=== PATIENT | male | born 1990 | race Caucasian/White ===

== ENCOUNTER 2020-04-21 14:52 | Outpatient (REF) | payer OTHER, SELFPAY | END 2020-04-21 14:53 | disposition home or self-care (01) | LOC: HO.LAB 14:52 | PROVIDERS: Visit Provider Internal Medicine | DX: Z20.828 Contact with and (suspected) exposure to other viral communicable diseases (principal) | CPT/HCPCS: C9803; U0003 ==

== ENCOUNTER 2022-02-27 10:37 | Emergency (ER) | payer OTHER, SELFPAY ==
[2022-02-27 12:10] VITALS: BP 131/75; PULSE 64; RESP 16; TEMP 36.6; O2SAT 99; BMI 28.1
--- NOTE | 2022-02-27 14:41 | ED.EAR ---
HPI - Ear Problem General Chief complaint: Ear Problems Stated complaint: pain in R ear. both ears bleeding 3 days Time Seen by Provider: 02/27/22 14:16 Source: patient Mode of arrival: ambulatory History of Present Illness HPI Narrative: 31-year-old male with no significant past medical history presenting to the ED complaining of right ear pain x4 days. Reports pain radiating to face and mouth. Admits to bloody drainage a few days ago which has resolved. Denies fever, chills, hearing loss, cough, recent travel, sore throat/inability to swallow MD Complaint: ear pain and ear discharge Location: right ear Related Data Previous Rx's Medication Instructions Recorded amoxicillin 875 mg-potassium 1 tab PO BID 7 days #14 tabs 02/27/22 clavulanate 125 mg tablet ciprofloxacin 0.3 %-dexamethasone 4 drp otic (ears) BID 7 days #7.5 02/27/22 0.1 % ear drops,suspension mL (Ciprodex) Allergies Allergy/AdvReac Type Severity Reaction Status Date / Time No Known Allergies Allergy Verified 02/27/22 12:09 Review of Systems Review of Systems: Constitutional: No Fever, No Chills ENT/Mouth: + Ear Pain, No Nasal Congestion, No Sinus Pain, No Hoarseness, No sore throat, No Rhinorrhea, No Swallowing Difficulty Cardiovascular: No Chest Pain, No SOB Respiratory: No Cough, No Sputum Gastrointestinal: No Nausea, No Vomiting, No Diarrhea, No Constipation, No Abdominal pain Genitourinary: No Dysuria, No Urinary Frequency, No Hematuria, No Flank Pain Musculoskeletal: No joint pain, No Myalgias, No Joint Swelling Skin: No Skin Lesions, No rash Neuro: No Weakness, No Numbness, No Paresthesias Yes all other systems are reviewed and are negative Constitutional: Constitutional: Reports as per [facility] Past Medical History Attestation statement: The following information was validated with the patient. Social History Social History Advance Directives: No Advance Directives Information Provided: No Physical Exam Vital Signs: Vital Signs: Last Vital Signs Temp 98 F 02/27/22 12:10 Pulse 64 02/27/22 12:10 Resp 16 02/27/22 12:10 BP 131/75 02/27/22 12:10 Pulse Ox 99 02/27/22 12:10 O2 Del Method 02/27/22 12:10 BMI result Body Mass Index 28.1 Const: General: cooperative, healthy appearing and no acute distress Orientation/consciousness: patient oriented x3 Limitations: no limitations HEENT: Head: Yes normal to inspection and Yes atraumatic Ears: hearing grossly normal bilaterally, TM normal on the left, mastoids normal, Abnormal EAC present edema on the right and EAC tenderness on the right and TM abnormal dull on the right and erythematous on the right General nose exam: Normal external nose present Face and sinus: Yes normal facial exam Throat: Yes posterior oropharynx normal, Yes tonsils normal, Yes uvula midline, No abnormal tonsil and No peritonsillar mass Eyes: General: appearance normal, both eyes and all related structures EOM: EOMs intact bilaterally Neck: Neck: Yes normal visual inspection and Yes no meningeal signs Resp: Effort & Inspection: normal respiratory effort and no respiratory distress Auscultation: clear to auscultation bilaterally Cardio: Rate: regular rate Heart sounds: S1 normal heart sound present and S2 normal heart sound present Skin: Rashes: no rashes Wounds: no wounds Neuro: General: patient oriented x3, tone normal and no meningeal signs Gait exam (Neuro): Normal gait present Extrem: General: Yes normal to inspection MDM - Ear MDM Narrative Medical decision making narrative: 31-year-old male with no significant past medical history presenting to the ED complaining of right ear pain x4 days. On exam vital signs stable, NAD, nontoxic appearing, physical exam as above consistent otitis media and externa. Ear wick placed. Will DC with p.o. and antibiotic drops Results discussed with patient including worrisome signs and symptoms and strict return precautions, and when to return to the emergency department. They verbalized understanding and feel safe for discharge at this time. Differential Diagnosis Differential diagnosis: Likely otitis externa, otitis media and cerumen impaction Medical Records Attestation: I reviewed the patient's medical records. Lab Data Attestation: I reviewed the patient's lab results. Discharge Plan Discharge Clinical Impression: Otitis media, Otitis externa Patient Disposition: Home, Self-Care Instructions: Otitis Externa (ED), Ear Infection (ED) Additional Instructions: You have an external and internal ear infection. Use oral antibiotics and drops as prescribed. If your weight does not fall out on its own in the next 48-72 hours please return to the ED for removal If symptoms persist or worsen, he developed drainage from ear, fever, or unremitting pain return to the ED Take Tylenol and Motrin for pain Prescriptions: New ciprofloxacin-dexamethasone [Ciprodex] 0.3-0.1 % drops,suspension 4 drp otic (ears) BID 7 Days Qty: 7.5 0RF amoxicillin-pot clavulanate 875-125 mg tablet 1 tab PO BID 7 Days Qty: 14 0RF Referrals: Physician,None [Primary Care Provider] - 1 week
== END 2022-02-27 15:42 | disposition home or self-care (01) ==
PROVIDERS: Emergency Provider Emergency Medicine
DX: H66.91 Otitis media, unspecified, right ear (principal); H60.91 Unspecified otitis externa, right ear
CPT/HCPCS: 99282; 99283